=== PATIENT | female | born 1955 | race Caucasian/White ===

== ENCOUNTER → 2018-03-04 | Outpatient (CLI) | payer BC ==
--- NOTE | 2018-03-04 13:21 | RADIOLOGY IMAGING REPORT ---
FACILITY: [facility] PATIENT NAME: Sobeida Gonzalez : 1955 MR: [id number] V: [id number] EXAM DATE: [id number] ORDERING PHYSICIAN: JERZY GROSSMAN TECHNOLOGIST: Location: [facility] Patient: Sobeida Gonzalez : 1955 Visit/Account:[id number] Date of Sevice: 03/04/2018 DEXA Scan Clinical history: Osteoporosis. Comparison: DEXA scan from 03/20/2016. LUMBAR SPINE: The bone mineral density (BMD) measured from L1-L4 correlates with a Z-score of -0.7 and a T-score of -2.1 which is osteopenia as defined by the World Health Organization. The corresponding risk of fra cture in the lumbar spine is 4-6 times increased compared with a young adult reference population. T his value has increase by 2.1 % since the prior study. More than 5% change is considered significant . HIP: Bone mineral density (BMD) measured in the LEFT total hip region correlates with a Z-score -1.3 and a T-score of -2.4 which is osteopenia as defined by the World Health Organization. The corresponding risk of fracture in the hip is 4-6 times increased compared to a young adult reference population. Th is value has decrease by 3.6 % since the prior study. More than 5% change is considered significant. T score left femoral neck -2.3 Bone mineral density (BMD) measured in the Femoral Neck region measures 0.713 g/cm?. IMPRESSION: 1. Lumbar spine: Osteopenia. There has been 2.1% increase in the bone mineral density since the pre vious exam. 2. Left Total Hip: Osteopenia. There has been 3.6% decrease in the bone mineral density since the p revious exam. 3. Femoral Neck: Bone Mineral Density is 0.713 g/cm? The next DEXA scan of this patient should include the following sites: L1-L4 and the left hip. FRAX? WHO Fracture Risk Assessment Tool link: <http://www.shef.ac.uk/FRAX/tool.jsp?locationValue=9> PLEASE NOTE: 1) The World Health Organization defines low BMD as follows: T-score Normal > -1 Osteopenia < -1 and > -2.5 Osteoporosis < -2.5 without fractures Established osteoporosis < -2.5 with fractures 2) In general, you may wish to consider: Diagnosis Treatment Follow-up DEXA Normal BMD Prevention 2-3 years Osteopenia Prevention/therapy 1-2 years Osteoporosis Therapy Yearly 3) Fracture risk estimated from the T-score is more accurate for vertebral fractures (often spontane ous) than for hip fractures. Report Dictated By: Maeve Morrow MD at 03/04/2018 1:15 PM Report E-Signed By: Maeve Morrow MD at 03/04/2018 1:17 PM DANIELEN:AMIHUMERAVNuno
--- NOTE | 2018-03-05 15:47 | RADIOLOGY IMAGING REPORT ---
FACILITY: [facility] PATIENT NAME: GURPREET VAN : [id number] MR: [id number] V: [id number] EXAM DATE: [id number] ORDERING PHYSICIAN: JERZY GROSSMAN TECHNOLOGIST: Kelly Jamil PROCEDURE:BILATERAL DIGITAL SCREENING MAMMOGRAM WITH CAD ASSISTED INTERPRETATION & 3D TOMOSYNTHESIS COMPARISON:Prior mammograms dated 04/28/17, 03/20/16, 04/24/15, 05/12/14, 05/11/13, 04/26/12 INDICATIONS:screening FINDINGS: Small to moderate amount of fibroglandular tissue is seen throughout the breasts. The parenchymal pattern has remained stable allowing for difference in mammographic technique & patient positioning. There is no evidence of malignant appearing mass, malignant appearing calcification or other secondary sign of malignancy in either breast. DIAGNOSTIC CATEGORY 1--NEGATIVE. RECOMMENDATIONS: ROUTINE MAMMOGRAM AND CLINICAL EVALUATION. IMPRESSION: BIRADS 1: Negative. Dictated by: Maeve Morrow M.D. on 03/04/2018 at 16:49 Transcribed by: JANICE on 03/05/2018 at 9:14 Approved by: Maeve Morrow M.D. on 03/05/2018 at 15:47 [facility]
== END ==
LOC: MAMO 00:24
PROVIDERS: ATTEND Nurse Practitioner Family
DX: Z12.31 Encounter for screening mammogram for malignant neoplasm of breast (principal); Z13.820 Encounter for screening for osteoporosis; M85.89 Other specified disorders of bone density and structure, multiple sites
CPT/HCPCS: 77063; 77067; 77080